=== PATIENT | female | born 1965 | race Caucasian/White ===

== ENCOUNTER 2018-05-17 13:28 | Emergency (ER) | payer MEDICAID ==
[~2018-05-17] VITALS: Ht 160 cm; Wt 57.8 kg
[~2018-05-17 13:28] MED LIST: ATEN50TA41 PO; CLON1TAB11 PO; FLUO20CA19 PO
[2018-05-17 14:04] VITALS: BP 161/96
[2018-05-17 14:59] LABS: MICROSCOPIC AUTO
[2018-05-17 15:00] LABS: CULTURE INDICATED? YES
--- NOTE | 2018-05-17 15:19 | NUR ---
PT REPORTS HAVING A UTI. C/O RIGHT FLANK PAIN AND BURNING WITH URINATION. PT IS ALERT, ORIENTED, WITH NAD. PT IS CONNECTED TO THE MONITOR. CALL LIGHT WITHIN REACH. AT BEDSIDE.
--- NOTE | 2018-05-17 15:52 | NUR ---
Patient given discharge instructions and they have confirmed that they understand the instructions. Patient ambulatory with steady gait.
== END 2018-05-17 15:53 | disposition home or self-care (01) ==
LOC: ED 15:40
DX: N30.00 Acute cystitis without hematuria (principal); F15.10 Other stimulant abuse, uncomplicated; I10 Essential (primary) hypertension; F32.9 Major depressive disorder, single episode, unspecified; F41.1 Generalized anxiety disorder; Z88.6 Allergy status to analgesic agent; Z88.8 Allergy status to other drugs, medicaments and biological substances; Z88.5 Allergy status to narcotic agent
CPT/HCPCS: 81001; 87077; 87086; 87186; 99283

== ENCOUNTER 2018-09-06 13:15 | Emergency (ER) | payer MEDICAID ==
[~2018-09-06] VITALS: Ht 162.6 cm; Wt 58.0 kg
[2018-09-06 14:07] LABS: CULTURE INDICATED? YES; MICROSCOPIC INDICATED
[2018-09-06 14:46] LABS: ALBUMIN 3.5 g/dL (3.4-5.0); ANION GAP 4 mmol/L (5-15); CALCIUM 8.5 mg/dL (8.5-10.1); CHLORIDE 103 mmol/L (98-107)
[2018-09-06 14:47] LABS: BASOPHILS # (AUTO) 0.02 x10^3/uL (0-0.1); BASOPHILS % (AUTO) 0 % (0-1); EOSINOPHILS # (AUTO) 0.06 x10^3/uL (0-0.4); EOSINOPHILS % (AUTO) 1 % (1-7); LYMPHOCYTES # (AUTO) 1.12 x10^3/uL (1-3.4); LYMPHOCYTES % (AUTO) 23 % (22-44); MD NO; MEAN CORPUSCULAR HEMOGLOBIN 28.2 pg (27.0-34.8); MEAN CORPUSCULAR VOLUME 85.4 fL (80-100); MEAN PLATELET VOLUME 9.1 fL (7.4-10.4); MONOCYTES # (AUTO) 0.26 x10^3/uL (0.2-0.8); MONOCYTES % (AUTO) 5 % (2-9); NEUTROPHILS # (AUTO) 3.41 x10^3/uL (1.8-6.8); NEUTROPHILS % (AUTO) 70 % (42-75); PLATELET COUNT 236 x10^3/uL (130-400); RED BLOOD COUNT 4.74 x10^6/uL (3.82-5.3); RED CELL DISTRIBUTION WIDTH 13.8 % (9.6-15.2)
[2018-09-06 14:52] LABS: ALANINE AMINOTRANSFERASE 27 U/L (12-78); ALKALINE PHOSPHATASE 65 U/L (45-117); BILIRUBIN,TOTAL 0.5 mg/dL (0.2-1.0); CREATININE 0.86 mg/dL (0.55-1.02); TOTAL PROTEIN 7.1 g/dL (6.4-8.2); TROPONIN I < 0.015 ng/mL (0.000-0.045)
[2018-09-06 16:26] VITALS: BP 101/48
--- NOTE | 2018-09-06 16:38 | NUR ---
pt has to leave because she has to pick her grandson
== END 2018-09-06 17:08 | disposition left against medical advice (07) ==
LOC: ED 17:02
DX: R10.13 Epigastric pain (principal)
CPT/HCPCS: 36415; 80053; 81001; 83690; 84484; 85025; 87077; 87086; 87186; 93005; 99284

== ENCOUNTER 2018-09-30 16:01 | Emergency (ER) | payer MEDICAID ==
[~2018-09-30] VITALS: Ht 160 cm; Wt 53.1 kg
--- NOTE | 2018-09-30 16:01 | NUR ---
[place] c/o "couldn't speak right, like I was slurring, my left side got weak & I was dizzy, lasted about 30 mins, my left shoulder also hurts since I fell a couple of months ago"; BG 93, no other invterventions [employer] per EMS; pt changed into gown, responds approp to staff, AOx4, neuro intact on arrival; NAD, comfort measures provided, call light within reach; cardiac, NIBP & SpO2 monitors in place.
[2018-09-30] MEDS ORDERED: SODIUM CHLORIDE FLUSH 10ML SYR IVF ONE (16:30)
--- NOTE | 2018-09-30 17:01 | NUR ---
pt laying on gurney with eyes closed, responds approp to staff, NAD, comfort measures provided, call light within reach;
[2018-09-30 17:15] LABS: BASOPHILS # (AUTO) 0.05 x10^3/uL (0-0.1); BASOPHILS % (AUTO) 1 % (0-1); EOSINOPHILS % (AUTO) 2 % (1-7); LYMPHOCYTES # (AUTO) 1.71 x10^3/uL (1-3.4); LYMPHOCYTES % (AUTO) 34 % (22-44); MD NO; MEAN CORPUSCULAR HEMOGLOBIN 29.4 pg (27.0-34.8); MEAN CORPUSCULAR HGB CONC 33.7 g/dL (32.4-35.8); MEAN CORPUSCULAR VOLUME 87.4 fL (80-100); MEAN PLATELET VOLUME 9.2 fL (7.4-10.4); MONOCYTES # (AUTO) 0.42 x10^3/uL (0.2-0.8); MONOCYTES % (AUTO) 8 % (2-9); NEUTROPHILS # (AUTO) 2.74 x10^3/uL (1.8-6.8); NEUTROPHILS % (AUTO) 55 % (42-75); PLATELET COUNT 239 x10^3/uL (130-400); RED BLOOD COUNT 4.62 x10^6/uL (3.82-5.3); RED CELL DISTRIBUTION WIDTH 13.7 % (9.6-15.2)
[2018-09-30] MEDS ORDERED: METH10TA2 PO (17:23)
[2018-09-30 17:28] LABS: ALANINE AMINOTRANSFERASE 31 U/L (12-78); ALBUMIN 3.6 g/dL (3.4-5.0); ANION GAP 5 mmol/L (5-15); CALCIUM 8.8 mg/dL (8.5-10.1); CHLORIDE 103 mmol/L (98-107); CREATININE 1.06 mg/dL (0.55-1.02); INTERNATIONAL NORMALIZED RATIO 1.01 (0.93-1.1); PROTHROMBIN TIME 10.6 Seconds (9.6-11.5)
[2018-09-30 17:30] LABS: ALKALINE PHOSPHATASE 74 U/L (45-117); BILIRUBIN,TOTAL 0.4 mg/dL (0.2-1.0); SALICYLATE LEVEL < 1.7 mg/dL (2.8-20.0)
[2018-09-30 18:00] VITALS: BP 105/62
--- NOTE | 2018-09-30 18:00 | NUR ---
pt upright on gurney awake & comfortable, responds approp to staff, NAD, comfort measures provided, call light within reach;
[2018-09-30] MEDS ORDERED: FAMOTIDINE 20 MG/2 ML IVP ONE (18:30)
[2018-09-30] MEDS ORDERED: PROCHLORPERAZINE 5 MG/ML, 2ML IVPush ONE (18:30)
--- NOTE | 2018-09-30 18:42 | NUR ---
Patient given discharge instructions and they have confirmed that they understand the instructions. Patient ambulatory with steady gait.
== END 2018-09-30 18:43 | disposition home or self-care (01) ==
LOC: ED 17:24
DX: R47.81 Slurred speech (principal); R42 Dizziness and giddiness; I10 Essential (primary) hypertension; F17.200 Nicotine dependence, unspecified, uncomplicated
CPT/HCPCS: 36415; 70450; 80053; 80307; 85025; 85610; 85730; 99284

== ENCOUNTER 2019-04-04 00:02 | Emergency (ER) | payer MEDICAID ==
[~2019-04-04] VITALS: Ht 160 cm; Wt 63.7 kg
[~2019-04-04 00:02] MED LIST changes: +METH10TA2 PO
[2019-04-04] MEDS ORDERED: ACETAMINOPHEN 500 MG TABLET PO ONE (00:30)
[2019-04-04] MEDS ORDERED: SULFAMETH./TRIMETHOPRIM DS 800MG/160MG TABLET PO ONE (00:30)
[2019-04-04] MEDS ORDERED: SULFAMETH./TRIMETHOPRIM DS 800MG/160MG TABLET ONE (00:39)
[2019-04-04] MEDS ORDERED: ACETAMINOPHEN 500 MG TABLET ONE (00:40)
[2019-04-04 00:54] VITALS: BP 167/90
--- NOTE | 2019-04-04 00:55 | NUR ---
REVIEWED DISCHARGE INSTRUCTIONS AND PRESCRIPTIONS X 2 W/ PT, VERBALIZED UNDERSTANDING TO INFORMATION PROVIDED INCLUDING FOLLOW UP CARE, RETURN PRECAUTIONS AND WOUND CARE. ADDRESSED FURTHER QUESTIONS R/T WOUND CARE, DENIED FURTHER QUESTIONS/CONCERNS. PT AMBULATED FROM ED.
== END 2019-04-04 00:58 | disposition home or self-care (01) ==
LOC: ED 00:56
DX: L02.01 Cutaneous abscess of face (principal); I10 Essential (primary) hypertension; F17.200 Nicotine dependence, unspecified, uncomplicated
CPT/HCPCS: 99283

== ENCOUNTER 2019-06-04 06:38 | Emergency (ER) | payer MEDICAID ==
[~2019-06-04] VITALS: Ht 160 cm; Wt 59.5 kg
[2019-06-04] MEDS ORDERED: KETOROLAC 30 MG/1 ML IM ONE (08:30)
[2019-06-04] MEDS ORDERED: CYCLOBENZAPRINE 10 MG TABLET PO ONE (08:30)
[2019-06-04] MEDS ORDERED: KETOROLAC 30 MG/1 ML ONE (08:41)
[2019-06-04] MEDS ORDERED: CYCLOBENZAPRINE 10 MG TABLET ONE (08:41)
[2019-06-04] MEDS ORDERED: LISINOPRIL (08:55)
[2019-06-04] MEDS ORDERED: ASPI-515 PO (08:55)
[2019-06-04] MEDS ORDERED: LISI1TAB23 PO (08:55)
[2019-06-04 08:57] LABS: ANION GAP 5 mmol/L (5-15); CALCIUM 9.5 mg/dL (8.5-10.1); CHLORIDE 104 mmol/L (98-107); CREATININE 0.83 mg/dL (0.55-1.02)
--- NOTE | 2019-06-04 08:59 | NUR ---
PT SITTING IN BED, AT BEDSIDE, PT BREATHING EVEN AND UNLABORED, CALL LIGHT WITHIN REACH. MEDICATED PT FOR PAIN PER MAR.
--- NOTE | 2019-06-04 09:40 | NUR ---
PT SITTING IN BED, RESPIRATIONS EVEN AND UNLABORED, NO SIGNS OF DISTRESS, CONVERSING WITH AT BEDSIDE.
[2019-06-04 10:00] LABS: MEAN CORPUSCULAR HEMOGLOBIN 28.8 pg (27.0-34.8); MEAN CORPUSCULAR HGB CONC 33.3 g/dL (32.4-35.8); MEAN CORPUSCULAR VOLUME 86.6 fL (80-100); MEAN PLATELET VOLUME 8.7 fL (7.4-10.4); PLATELET COUNT 213 x10^3/uL (130-400); RED BLOOD COUNT 4.97 x10^6/uL (3.82-5.3)
--- NOTE | 2019-06-04 10:05 | NUR ---
PT SITTING IN BED, AT BEDSIDE, REPORTS PAIN ALLEVIATED AFTER MEDICINE. PT AXIOUS, ASKING IF SOMETHING IS WRONG WITH HER WHEN OXYGEN STAT WASN'T PLACED CORRECTLY. PT ASKED IF LAB RESULTS WERE INDICATIVE OF CANCER BECAUSE REPORTED PARENTS OF CANCER. PA AT BEDSIDE, REASSURED PT LABS OR PT PRESENTATION NOT INDICATIVE OF CANCER.
[2019-06-04 10:30] LABS: BASOPHILS # (AUTO) 0.02 x10^3/uL (0-0.1); BASOPHILS % (AUTO) 0 % (0-1); EOSINOPHILS # (AUTO) 0.09 x10^3/uL (0-0.4); EOSINOPHILS % (AUTO) 2 % (1-7); LYMPHOCYTES # (AUTO) 1.29 x10^3/uL (1-3.4); LYMPHOCYTES % (AUTO) 32 % (22-44); MD SCAN; MONOCYTES # (AUTO) 0.31 x10^3/uL (0.2-0.8); MONOCYTES % (AUTO) 8 % (2-9); NEUTROPHILS # (AUTO) 2.35 x10^3/uL (1.8-6.8); NEUTROPHILS % (AUTO) 58 % (42-75)
[2019-06-04] MEDS ORDERED: LORazepam 1MG TABLET PO ONE (10:30)
[2019-06-04] MEDS: METHOCARBAMOL 750 MG TABLET PO ONE ×2 (10:30→10:50)
[2019-06-04] MEDS ORDERED: METHOCARBAMOL 750 MG TABLET ONE (10:45)
[2019-06-04] MEDS ORDERED: LORazepam 1MG TABLET ONE (10:46)
[2019-06-04 11:02] VITALS: BP 165/107
== END 2019-06-04 11:05 | disposition home or self-care (01) ==
LOC: ED 09:26
DX: M62.831 Muscle spasm of calf (principal); F41.1 Generalized anxiety disorder; I10 Essential (primary) hypertension
CPT/HCPCS: 36415; 80048; 85025; 96372; 99283; J1885

== ENCOUNTER 2019-06-19 08:24 | Emergency (ER) | payer MEDICAID ==
[~2019-06-19] VITALS: Ht 162.6 cm; Wt 63.6 kg
[~2019-06-19 08:24] MED LIST changes: +ASPI-515 PO; +LISI1TAB23 PO; +LISINOPRIL
[2019-06-19 08:35] VITALS: BP 170/100
== END 2019-06-19 10:48 | disposition left against medical advice (07) ==
LOC: ED 10:37
DX: M25.532 Pain in left wrist (principal); Z53.21 Procedure and treatment not carried out due to patient leaving prior to being seen by health care provider

== ENCOUNTER 2019-06-20 17:04 | Emergency (ER) | payer MEDICAID ==
[~2019-06-20] VITALS: Ht 162.6 cm; Wt 63.6 kg
[2019-06-20 17:38] VITALS: BP 161/79
--- NOTE | 2019-06-20 17:57 | NUR ---
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
[2019-06-20] MEDS ORDERED: OXYcodone/APAP 5/325MG TABLET PO ONE (18:30)
[2019-06-20] MEDS ORDERED: OXYcodone/APAP 5/325MG TABLET ONE (18:58)
== END 2019-06-20 18:58 | disposition home or self-care (01) ==
LOC: ED 18:04
DX: S52.502A Unspecified fracture of the lower end of left radius, initial encounter for closed fracture (principal); I10 Essential (primary) hypertension; Z87.891 Personal history of nicotine dependence; W19.XXXA Unspecified fall, initial encounter; Y93.89 Activity, other specified; Y92.89 Other specified places as the place of occurrence of the external cause; Y99.8 Other external cause status
CPT/HCPCS: 29125; 99283

== ENCOUNTER 2020-02-09 21:48 | Inpatient (IN) | payer MEDICAID ==
[~2020-02-09] VITALS: Ht 160 cm; Wt 63.0 kg
--- NOTE | 2020-02-09 22:11 | NUR ---
PT MOANING IN PAIN, ALL OVER ABD PAIN, LAB HERE DRAWING BLOOD. MULTIPLE IV ATTEMPTS, HX IVDA. VSS. DRY HEAVES.
[2020-02-09] MEDS ORDERED: HYDROmorphone 2 MG/ML, 1ML ONE (22:13)
[2020-02-09] MEDS ORDERED: ONDANSETRON 2MG/ML, 2ML ONE (22:13)
[2020-02-09] MEDS: HYDROmorphone 2 MG/ML, 1ML IVPush PRN ×2 (22:23→23:18)
[2020-02-09] MEDS ORDERED: ONDANSETRON 2MG/ML, 2ML IVPush ONE (22:30)
[2020-02-09] MEDS ORDERED: SODIUM CHLORIDE 0.9% 1,000ML IVBOLUS ONE (22:30)
--- NOTE | 2020-02-09 22:31 | NUR ---
POST DILAUDID, PT WITH DECREASE SATS AND DECREASE RR, STIMULATED AND PLACED ON 4L O2. VSS, IVF WO.
--- NOTE | 2020-02-09 22:35 | NUR ---
IVF INFUSING, VSS. RR [address] SCAN.
[2020-02-09 22:37] LABS: MEAN CORPUSCULAR HEMOGLOBIN 27.6 pg (27.0-34.8); MEAN CORPUSCULAR HGB CONC 33.6 g/dL (32.4-35.8); MEAN PLATELET VOLUME 9.3 fL (7.4-10.4); PLATELET COUNT 251 x10^3/uL (130-400); RED BLOOD COUNT 5.33 x10^6/uL (3.82-5.3); RED CELL DISTRIBUTION WIDTH 14.1 % (9.6-15.2)
[2020-02-09 22:46] LABS: ALANINE AMINOTRANSFERASE 25 U/L (12-78); ALBUMIN 3.7 g/dL (3.4-5.0); ANION GAP 8 mmol/L (5-15); CALCIUM 8.7 mg/dL (8.5-10.1); CHLORIDE 98 mmol/L (98-107); CREATININE 0.82 mg/dL (0.55-1.02)
[2020-02-09 22:51] LABS: ALKALINE PHOSPHATASE 87 U/L (45-117); BILIRUBIN,TOTAL 0.7 mg/dL (0.2-1.0); TOTAL PROTEIN 7.7 g/dL (6.4-8.2); TROPONIN I < 0.015 ng/mL (0.000-0.045)
[2020-02-09 23:15] LABS: LYMPHS% (MANUAL) 14 % (22-44); MD YES; MONOS% (MANUAL) 3 % (2-9); REACTIVE LYMPHS % (MANUAL) 3 % (0-0); SEGS% (MANUAL) 80 % (42-75)
[2020-02-09 23:16] LABS: <PLATELET ESTIMATE> ADEQUATE; <PLT MORPHOLOGY> NORMAL PLT MORPH; ANISOCYTOSIS 1+; HYPOCHROMIA 2+; MICROCYTOSIS 1+
--- NOTE | 2020-02-09 23:22 | NUR ---
BACK FROM CT, REMEDICATED. PT NOW REPORTS SHE MAY HAVE HX OF ULCER AND HAS BEEN TAKING UP TO 10 200MG MOTRIN A DAY FOR SEVERAL DAYS FOR PAIN. DENIES BLACK TARRY STOOL OR BLOOD, NO BLOOD IN EMESIS. INFORMED ERP. VSS. IVF WO, NEED URINE STILL.
--- NOTE | 2020-02-10 00:18 | NUR ---
PT MORE COMFORTABLE, SLEEPING INTERMITTENTLY. URINE SAMPLE WAS SENT. IVF INFUSED. VSS. WAITING FOR CT READ, URINE RESULTS.
[2020-02-10 00:26] LABS: MICROSCOPIC INDICATED
[2020-02-10 00:35] LABS: AMPHETAMINE SCREEN, URINE Positive (Negative); BARBITURATE SCREEN, URINE Negative (Negative); BENZODIAZEPINE SCREEN, URINE Positive (Negative); CANNABINOID SCREEN, URINE Negative (Negative); COCAINE SCREEN, URINE Negative (Negative); METHADONE SCREEN, URINE Positive (Negative); OPIATE SCREEN, URINE Positive (Negative)
--- NOTE | 2020-02-10 00:36 | NUR ---
PT NOW MOANING IN PAIN, REQUESTING MORE PAIN MEDS,
[2020-02-10] MEDS ORDERED: MORPHINE SULFATE 4 MG/ML, 1ML ONE (00:43)
[2020-02-10] MEDS ORDERED: MORPHINE SULFATE 4 MG/ML, 1ML IVPush PRN (01:00)
[2020-02-10] MEDS ORDERED: DIPHENHYDRAMINE 50 MG/ML, 1ML ONE (01:00)
--- NOTE | 2020-02-10 01:04 | NUR ---
POST MORPHINE ADMIN. PT WITH VISIBLE HIVE LIKE RASH, REDNESS AND ITCHING TO LEFT ARM AND CHEST. NO SOB. ERP INFORMED, VERBAL OK FOR BENADRYL 50MG IV. VSS.
[2020-02-10] MEDS ORDERED: DIPHENHYDRAMINE 50 MG/ML, 1ML IVPush ONE (01:30)
--- NOTE | 2020-02-10 01:41 | NUR ---
REPORT TO RN FLOOR. PT TX WITH ALL BELONGINGS.
[2020-02-10 02:13] VITALS: BP 135/91
[2020-02-10] MEDS ORDERED: ENALAPRILAT 1.25 MG/ML, 2ML IVPush PRN (02:30)
[2020-02-10] MEDS ORDERED: LIDODERM 5% PATCH TD PRN (02:30)
[2020-02-10] MEDS ORDERED: hydrALAzine 20 MG/ML, 1ML IVPush PRN (02:30)
[2020-02-10] MEDS ORDERED: LORazepam 2 MG/ML, 1ML IVPush PRN (02:30)
[2020-02-10] MEDS ORDERED: ONDANSETRON 2MG/ML, 2ML IVPush PRN (02:30)
[2020-02-10] MEDS: HYDROmorphone 2 MG/ML, 1ML IVPush PRN ×2 (02:40→06:09)
[2020-02-10] MEDS ORDERED: ENOXAPARIN 40 MG/0.4 ML SQ SCH (03:00)
[2020-02-10] MEDS: POTASSIUM CHLORIDE 20 MEQ in LACTATED RINGERS 1,000 ML IV SCH ×2 (03:14→14:17)
[2020-02-10 03:32] VITALS: BP 128/80
[2020-02-10] MEDS ORDERED: PANTOPRAZOLE 40 MG IV IVPush SCH (07:30)
[2020-02-10 07:43] LABS: ANION GAP 6 mmol/L (5-15); CALCIUM 7.9 mg/dL (8.5-10.1); CHLORIDE 105 mmol/L (98-107); CREATININE 0.66 mg/dL (0.55-1.02)
[2020-02-10] MEDS ORDERED: KETOROLAC 30 MG/1 ML IVPush PRN (08:00)
[2020-02-10 08:18] VITALS: BP 119/76
[2020-02-10] MEDS ORDERED: METHADONE INTENSOL 10 MG/ML ORAL CONC PO SCH (09:00)
[2020-02-10] MEDS ORDERED: METHADONE 10 MG TABLET ONE (09:32)
[2020-02-10] MEDS ORDERED: CLON-364 PO (09:56)
[2020-02-10] MEDS ORDERED: POTASSIUM CHLORIDE 20 MEQ TAB.ER.PRT PO ONE (13:00)
[2020-02-10 13:12] VITALS: BP 119/77
[2020-02-10 14:00] VITALS: BP 119/77
[2020-02-10] MEDS ORDERED: DOCU-131 PO (17:46)
[2020-02-11] MEDS ORDERED: METHADONE 10 MG TABLET PO SCH (09:00)
== END 2020-02-10 18:40 | disposition home or self-care (01) | DRG 247 ==
LOC: ED 22:38 → EDIP 02-10 01:04 → 4NE 02-10 01:51
PROVIDERS: ADMIT Family Medicine; ATTEND Family Medicine
DX: K56.51 Intestinal adhesions [bands], with partial obstruction (principal); E87.1 Hypo-osmolality and hyponatremia; E87.6 Hypokalemia; F11.10 Opioid abuse, uncomplicated; F41.1 Generalized anxiety disorder; G89.29 Other chronic pain; I10 Essential (primary) hypertension; J96.01 Acute respiratory failure with hypoxia; F32.9 Major depressive disorder, single episode, unspecified; M54.9 Dorsalgia, unspecified; Z87.891 Personal history of nicotine dependence
CPT/HCPCS: 36415; 74176; 80048; 80053; 80307; 81001; 83605; 83690; 83735; 84484; 85025; 93005; G0378; J1170; J1650; J1885; J2405; J3480; C9113; J1200; J2270; J7030; J7120

== ENCOUNTER 2020-04-04 23:40 | Emergency (ER) | payer MEDICAID ==
[~2020-04-04] VITALS: Ht 160 cm; Wt 60.0 kg
[~2020-04-04 23:40] MED LIST changes: +CLON-364 PO; +DOCU-131 PO
[2020-04-05] MEDS ORDERED: CYCLOBENZAPRINE 10 MG TABLET PO STA (00:03)
[2020-04-05] MEDS ORDERED: HYDROmorphone 2 MG/ML, 1ML ONE (00:08)
[2020-04-05] MEDS ORDERED: ONDANSETRON 2MG/ML, 2ML ONE ×2 (00:08→00:09)
[2020-04-05] MEDS ORDERED: CYCLOBENZAPRINE 10 MG TABLET ONE (00:09)
[2020-04-05] MEDS ORDERED: HYDROmorphone 2 MG/ML, 1ML IVPush PRN (00:30)
[2020-04-05] MEDS ORDERED: SODIUM CHLORIDE FLUSH 10ML SYR IVF ONE (00:30)
[2020-04-05] MEDS ORDERED: ONDANSETRON 2MG/ML, 2ML IVPush ONE (00:30)
[2020-04-05] MEDS ORDERED: METHOCARBAMOL 750 MG TABLET PO ONE (01:00)
[2020-04-05 01:01] LABS: BASOPHILS % (AUTO) 1 % (0-1); EOSINOPHILS % (AUTO) 3 % (1-7); LYMPHOCYTES % (AUTO) 36 % (22-44); MEAN CORPUSCULAR HEMOGLOBIN 28.1 pg (27.0-34.8); MEAN PLATELET VOLUME 9.1 fL (7.4-10.4); MONOCYTES % (AUTO) 7 % (2-9); NEUTROPHILS % (AUTO) 54 % (42-75); PLATELET COUNT 159 x10^3/uL (130-400); RED BLOOD COUNT 4.45 x10^6/uL (3.82-5.3); RED CELL DISTRIBUTION WIDTH 14.5 % (9.6-15.2)
[2020-04-05 01:02] LABS: MD NO
[2020-04-05 01:09] LABS: ALANINE AMINOTRANSFERASE 25 U/L (12-78); ALBUMIN 3.4 g/dL (3.4-5.0); ANION GAP 4 mmol/L (5-15); CALCIUM 8.2 mg/dL (8.5-10.1); CHLORIDE 107 mmol/L (98-107)
[2020-04-05 01:11] LABS: ALKALINE PHOSPHATASE 72 U/L (45-117); BILIRUBIN,TOTAL 0.3 mg/dL (0.2-1.0); TOTAL PROTEIN 6.7 g/dL (6.4-8.2)
--- NOTE | 2020-04-05 01:30 | NUR ---
PLACED PATIENT ON BEDPAN WITHOUT SUCCESS, PATIENT AWARE THAT URINE IS NEEDED FOR LABORATORY SCREENING
--- NOTE | 2020-04-05 01:55 | NUR ---
PATIENT RESTING QUIELTY ON STRETCHER WITH EYES CLOSED, WAKES EASILY. CALLBELL WITHIN REACH, VSS, NAD, WILL CONTINUE TO MONITOR.
[2020-04-05 02:39] VITALS: BP 113/65
--- NOTE | 2020-04-05 02:40 | NUR ---
PATIENT CLEARED FOR DISCHARGE. PATIENT IS COMPLAINING OF BACK PAIN UPON DISCHARGE. ATTEMPTED TO AID PATIENT IN GETTING DRESSED. PATIENT BECAME VERBALLY AGGRESSIVE, STATING "YA'LL DIDN'T DO A THING FOR ME" AND "I CAN'T BELIEVE THIS SHIT". EXPLAINED TO DIA PATIENT THAT VERBAL ABUSE WOULD NOT BE TOLERATED. WILL DRESS PATIENT FOR DISCHARGE.
--- NOTE | 2020-04-05 02:56 | NUR ---
PATIENT AMBULATORY TO WHEELCHAIR WITHOUT ASSITANCE WITHOUT COMPLICATIONS. PATIENT TAKEN TO DISCHARGE BY .
== END 2020-04-05 02:41 | disposition home or self-care (01) ==
LOC: ED 04-05 00:23
DX: S39.012A Strain of muscle, fascia and tendon of lower back, initial encounter (principal); G89.29 Other chronic pain; X58.XXXA Exposure to other specified factors, initial encounter; Y93.89 Activity, other specified; Y92.89 Other specified places as the place of occurrence of the external cause; Y99.8 Other external cause status
CPT/HCPCS: 36415; 80053; 85025; 96374; 96375; 99284; J1170; J2405

== ENCOUNTER 2020-11-30 01:31 | Inpatient (IN) | payer MEDICAID ==
[~2020-11-30] VITALS: Ht 160 cm; Wt 77.0 kg
[~2020-11-30 01:31] MED LIST changes: -ASPI-515 PO; +ASPI-963 PO
[2020-11-30] MEDS ORDERED: LISI20TA21 PO (01:49)
[2020-11-30 02:48] VITALS: BP 111/68
[2020-11-30] MEDS ORDERED: ACETAMINOPHEN 325 MG TABLET PO PRN (05:00)
[2020-11-30] MEDS ORDERED: LABETALOL 5MG/ML, 20ML IVPush PRN (05:00)
[2020-11-30] MEDS ORDERED: POTASSIUM CHLORIDE 20 MEQ TAB.ER.PRT PO ONE (05:00)
[2020-11-30] MEDS ORDERED: PROMETHAZINE 25 MG/ML, 1ML IM PRN (05:00)
[2020-11-30] MEDS ORDERED: CEFTRIAXONE 2 GM in DEXTROSE 5% 50 ML IVPB SCH (06:00)
[2020-11-30 06:52] LABS: BASOPHILS % (AUTO) 0 % (0-1); EOSINOPHILS % (AUTO) 0 % (1-7); LYMPHOCYTES % (AUTO) 10 % (22-44); MEAN CORPUSCULAR HEMOGLOBIN 27.6 pg (27.0-34.8); MEAN CORPUSCULAR HGB CONC 33.5 g/dL (32.4-35.8); MEAN PLATELET VOLUME 8.3 fL (7.4-10.4); MONOCYTES % (AUTO) 2 % (2-9); NEUTROPHILS % (AUTO) 87 % (42-75); PLATELET COUNT 163 x10^3/uL (130-400); RED BLOOD COUNT 4.01 x10^6/uL (3.82-5.3); RED CELL DISTRIBUTION WIDTH 14.7 % (9.6-15.2)
[2020-11-30 07:00] LABS: ALANINE AMINOTRANSFERASE 26 U/L (12-78); ALBUMIN 2.8 g/dL (3.4-5.0); ANION GAP 4 mmol/L (5-15); CHLORIDE 101 mmol/L (98-107); CREATININE 0.82 mg/dL (0.55-1.02)
[2020-11-30 07:07] LABS: ALKALINE PHOSPHATASE 74 U/L (45-117); BILIRUBIN,TOTAL 0.2 mg/dL (0.2-1.0); TOTAL PROTEIN 6.7 g/dL (6.4-8.2)
[2020-11-30] MEDS ORDERED: ENOXAPARIN 40 MG/0.4 ML SQ SCH (08:00)
[2020-11-30 09:30] VITALS: BP 123/88
[2020-11-30] MEDS: GUAIFENESIN ER 600 MG TABLET PO SCH ×2 (09:59→21:22)
[2020-11-30] MEDS: CHOLECALCIFEROL 1,000 UNIT TABLET PO SCH (09:59)
[2020-11-30] MEDS: METHADONE 10 MG TABLET PO SCH (10:00)
[2020-11-30] MEDS: ZINC SULFATE 220 MG CAPSULE PO SCH (10:00)
[2020-11-30] MEDS: ASPIRIN 81 MG TABLET EC PO SCH (10:00)
[2020-11-30] MEDS: AZITHROMYCIN 500 MG TABLET PO SCH (10:00)
[2020-11-30] MEDS: THIAMINE 100MG TABLET PO SCH (10:00)
[2020-11-30] MEDS ORDERED: ASCORBIC ACID 250 MG TAB ONE (10:49)
[2020-11-30] MEDS: INSULIN LISPRO 100 UNITS/ML, PEN SQ-INSULIN SCH ×3 (11:00→21:23)
[2020-11-30] MEDS: ASCORBIC ACID 500 MG TABLET PO SCH ×2 (11:03→16:50)
[2020-11-30 13:11] VITALS: BP 120/72
[2020-11-30 13:14] LABS: TROPONIN I < 0.015 ng/mL (0.000-0.045)
[2020-11-30] MEDS: DEXAMETHASONE 4 MG/ML, 1ML IVPush SCH (14:42)
[2020-11-30 19:32] VITALS: BP 145/84
[2020-11-30] MEDS ORDERED: MELATONIN 5 MG TABLET PO SCH (21:00)
[2020-11-30] MEDS: ENOXAPARIN 40 MG/0.4 ML SQ SCH (21:23)
[2020-12-01 00:27] VITALS: BP 133/82
[2020-12-01 06:16] LABS: ANION GAP 3 mmol/L (5-15); CALCIUM 8.3 mg/dL (8.5-10.1); CHLORIDE 103 mmol/L (98-107)
[2020-12-01 06:17] LABS: CREATININE 0.55 mg/dL (0.55-1.02)
[2020-12-01 07:30] VITALS: BP 158/90
[2020-12-01] MEDS ORDERED: GUAI600T31 PO (09:13)
[2020-12-01] MEDS ORDERED: CEFD300C37 PO ×2 (09:13)
[2020-12-01] MEDS: METHADONE 10 MG TABLET PO SCH (09:37)
[2020-12-01] MEDS: ASPIRIN 81 MG TABLET EC PO SCH (09:38)
[2020-12-01] MEDS: GUAIFENESIN ER 600 MG TABLET PO SCH (09:38)
[2020-12-01] MEDS: CHOLECALCIFEROL 1,000 UNIT TABLET PO SCH (09:38)
[2020-12-01] MEDS: AZITHROMYCIN 500 MG TABLET PO SCH (09:38)
[2020-12-01] MEDS: THIAMINE 100MG TABLET PO SCH (09:38)
[2020-12-01] MEDS: ASCORBIC ACID 500 MG TABLET PO SCH (09:39)
[2020-12-01] MEDS: ENOXAPARIN 40 MG/0.4 ML SQ SCH (09:39)
[2020-12-01] MEDS: ZINC SULFATE 220 MG CAPSULE PO SCH (09:39)
[2020-12-01] MEDS: DEXAMETHASONE 4 MG/ML, 1ML IVPush SCH (09:40)
[2020-12-01 12:21] VITALS: BP 148/68
== END 2020-12-01 12:30 | disposition left against medical advice (07) | DRG 137 ==
LOC: 3N 01:31 → INTOOBSV 01:31 → OBSVTOIN 01:31
PROVIDERS: ADMIT Family Medicine; ATTEND Hospitalist
DX: U07.1 COVID-19 (principal); J96.01 Acute respiratory failure with hypoxia; J12.82 Pneumonia due to coronavirus disease 2019; R65.10 Systemic inflammatory response syndrome (SIRS) of non-infectious origin without acute organ dysfunction; B18.2 Chronic viral hepatitis C; Z53.29 Procedure and treatment not carried out because of patient's decision for other reasons; E87.6 Hypokalemia; F11.20 Opioid dependence, uncomplicated; F31.30 Bipolar disorder, current episode depressed, mild or moderate severity, unspecified; F41.9 Anxiety disorder, unspecified; I10 Essential (primary) hypertension; Z79.899 Other long term (current) drug therapy
CPT/HCPCS: 36415; 71045; 80048; 80053; 82962; 83036; 83615; 83735; 84145; 84484; 85025; 85379; 86140; 93005; G0378; J0696; J1100; J1650